=== PATIENT | female | born 1940 | race Two or more races ===

== ENCOUNTER 2020-02-12 18:14 | Emergency (ER) | payer MEDICARE ==
[~2020-02-12] VITALS: Ht 157.5 cm; Wt 40.0 kg
[~2020-02-12 18:14] MED LIST: NORepinephrine 1 mg/ml inj IV ONE; etomidate 2mg/ml inj. ONE; naloxone 2mg/2ml inj ONE; rocuronium 10mg/ml inj IV ONE; sod chloride 0.9% 10ml flush syringe IV ONE
[2020-02-12] MEDS ORDERED: naloxone 2mg/2ml inj IV ONE (18:25)
[2020-02-12] MEDS ORDERED: normal saline 1000ML IV soln IVB ONE (18:25)
--- NOTE | 2020-02-12 18:32 | NUR ---
pt regirested in the system late due to id issue. dr lange at bedside at 180 ready for the intubation .santiago iv meds push nurse at bedside. at 1809 pt was admin 0.8 mcg of narcan reflex moment noted pt bp 77/51,spo2 99% on i gel hr 108. repated the dose of narcan 0.8 mcg iv push at 1814 with +lower extremity and upper body reflex. AT 1817 md nazario cra for intubation medicated the pt with etom 15 mg.bp 95/69,118 hr,spo2 78. buster 35 mg at 1818 iv push admin. Pt intubated at 1819 with et tube 7,22 cm to gum.b/l lung sound noted .ac/vc tidal vol 350,rr 16,peep 5 ,fio2 100%. at 1820 pt norepi 0.2 mcg/kg/min started by the santiago rn. At 1824 bp 121/94,hr 104 . [address] taken to [address] scan by raad tucker primary nurse at 1825 .pt vitals at ct scan 1830-bp 117/86,15,111 hr,94%. pt back to room.
--- NOTE | 2020-02-12 18:40 | NUR ---
dr lange aware that patient was started on levophed drip via piv.
[2020-02-12 18:45] LABS: BASOPHILS # (AUTO) 0.1 X10'3 (0-0.2); BASOPHILS % (AUTO) 0.5 % (0-1); EOSINOPHILS % (AUTO) 0.2 % (0-6); HEMATOCRIT 38.5 % (35.0-45.0); HEMOGLOBIN 12.3 g/dl (12.0-16.0); LYMPHOCYTES # (AUTO) 1.9 X10'3 (1.1-4.8); LYMPHOCYTES % (AUTO) 8.9 % (21-51); MEAN CORPUSCULAR HEMOGLOBIN 29.5 PG (27.0-31.0); MEAN CORPUSCULAR VOLUME 92.4 FL (78-98); MEAN PLATELET VOLUME 8.1 FL (7.4-10.4); MONOCYTES # (AUTO) 1.3 X10'3 (0-0.9); MONOCYTES % (AUTO) 6.3 % (2-12); NEUTROPHILS # (AUTO) 17.8 X10'3 (1.8-7.7); NEUTROPHILS % (AUTO) 84.1 % (42-75); PLATELET COUNT 255 X10'3 (140-440); RED BLOOD COUNT 4.17 X10'6 (4.20-5.60); RED CELL DISTRIBUTION WIDTH 14.3 % (11.5-14.5); WHITE BLOOD COUNT 21.2 X10'3 (4.5-11.0)
[2020-02-12 18:58] LABS: ALANINE AMINOTRANSFERASE 57 U/L (12-78); ALBUMIN 2.9 G/DL (3.4-5.0); ALBUMIN/GLOBULIN RATIO 0.8 (1.1-1.5); ALKALINE PHOSPHATASE 102 IU/L (46-116); ANION GAP 11 (8-16); ASPARTATE AMINO TRANSFERASE 43 U/L (10-37); BILIRUBIN,TOTAL 0.2 MG/DL (0.1-1.0); BLOOD UREA NITROGEN 22 MG/DL (7-18); BUN/CREATININE RATIO 18.5 (6.6-38.0); CALCIUM 7.8 MG/DL (8.5-10.1); CHLORIDE 108 MMOL/L (99-107); CREATININE 1.19 MG/DL (0.40-0.90); GLUCOSE 180 MG/DL (70-104); SODIUM 143 MMOL/L (135-145); TOTAL CARBON DIOXIDE 24.1 MMOL/L (24-32); TOTAL PROTEIN 6.4 G/DL (6.4-8.2); eGFR 44 ML/MIN
[2020-02-12 19:02] LABS: TROPONIN I 0.05 NG/ML (0.0-0.05)
[2020-02-12 19:05] LABS: POTASSIUM 4.2 MMOL/L (3.5-5.1)
[2020-02-12] MEDS ORDERED: iohexol 350MG/ML 100ml bottle IV ONE (19:06)
[2020-02-12 19:07] LABS: ETHANOL < 0.010 GM/DL (0.0-0.010)
--- NOTE | 2020-02-12 19:25 | NUR ---
Spoke to pt's son Immanuel over the telephone and relayed pt's status. 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
[2020-02-12 19:30] LABS: CLARITY,URINE CLEAR (Clear); COLOR,URINE YELLOW (Yellow); GLUCOSE, URINE 100 mg/dl (Neg); KETONES,URINE NEGATIVE (Neg); LEUKOCYTE ESTERASE ,URINE TRACE (Neg); NITRITES, URINE NEGATIVE (Neg); OCCULT BLOOD,URINE SMALL (Neg); PROTEIN,URINE 100 mg/dl (Neg); UROBILINOGEN,URINE 0.2 E.U/dL (0.2-1.0)
[2020-02-12 19:36] LABS: UA COLLECTION TYPE FOLEY CATH
[2020-02-12 19:37] LABS: BACTERIA,URINE FEW /HPF (Neg); RBC,URINE 0-2 /HPF (0-2); SQUAMOUS EPITHELIAL CELL,UR FEW /LPF (FEW)
[2020-02-12 19:44] LABS: URINE AMPHETAMINE SCREEN NEGATIVE (Neg); URINE BARBITUATE SCREEN NEGATIVE (Neg); URINE BENZODIAZEPINES SCREEN NEGATIVE (Neg); URINE CANNABINOID SCREEN NEGATIVE (Neg); URINE COCAINE SCREEN NEGATIVE (Neg); URINE METHADONE SCREEN NEGATIVE (Neg); URINE OPIATE SCREEN NEGATIVE (Neg); URINE PHENCYCLIDINE SCREEN NEGATIVE (Neg)
[2020-02-12] MEDS ORDERED: MIDAZolam 5mg/ml 2ml vial IV ONE (20:00)
--- NOTE | 2020-02-12 20:05 | NUR ---
Jairon zamora in ED - 02/12/20 at 2020 by [email or web address] Norepinephrine increased from 0.25 mcg/kg/min to 0.50 mcg/kg/min per Dr Riggins's verbal order.
--- NOTE | 2020-02-12 20:08 | NUR ---
Notified MD Riggins of declining BP in SBP 70. Verbal order given to change levophed to 0.5mcg/kg/min and titrate down as necessary.
[2020-02-12] MEDS ORDERED: NORepinephrine 8mg/ 250ml NS 250 ML IV SCH (20:15)
[2020-02-12 20:16] LABS: ABG BASE EXCESS -9.8 mmol/L (-2.0-2.0); ABG HCO3 18.1 mmol/L (22.0-26.0); ABG OXYGEN SATURATION 75.5 % (94-97); ABG PCO2 (T) 43.9 mmHg (32.0-45.0); ABG PO2 (T) 39.9 mmHg (75.0-100.0); FCOHb 1.5 % (0.0-3.9); FO2Hb 74.4 % (94-97); PATIENT TEMPERATURE 35.2; PEEP 5 cm H2O; RESPIRATORY RATE 16 b/min; TIDAL VOLUME 350 mL; TOTAL HEMOGLOBIN 14.7 G/dl (12.0-16.0)
--- NOTE | 2020-02-12 20:16 | NUR ---
Dr Riggins aware of fidel blood when pt's ET tube is suctioned.
[2020-02-12] MEDS ORDERED: ampicill/sulbac 1.5gm/NS 100ml 100 ML IV SCH (20:20)
--- NOTE | 2020-02-12 20:35 | NUR ---
Norephinephrine increased to 0.55 mcg/kg/min
--- NOTE | 2020-02-12 20:45 | NUR ---
Gave report to [facility] ER charge nurse via telephone.
--- NOTE | 2020-02-12 20:52 | NUR ---
TRANSFERRED TO [facility]. HSRUTI BECKMAN WENT WITH EMS.
--- NOTE | 2020-02-12 21:00 | NUR ---
Spoke to pt's son Immanuel over the telephone and notified him of pt's transfer to [facility] for neurosurgery services.
[2020-02-12 21:31] LABS: PLATELET ESTIMATE NORMAL; TOTAL CELLS COUNTED 100
[2020-02-12 21:34] VITALS: BP 91/60
== END 2020-02-12 21:37 | disposition short-term general hospital (02) ==
LOC: ER 18:15
DX: J18.9 Pneumonia, unspecified organism (principal); G08 Intracranial and intraspinal phlebitis and thrombophlebitis; R41.82 Altered mental status, unspecified; Z88.0 Allergy status to penicillin
CPT/HCPCS: 36415; 36600; 70450; 70496; 70498; 71045; 80053; 80305; 80320; 81001; 82140; 82803; 84484; 85007; 85018; 85025; 87088; 93005; 96361; 96366; 96374; 99291; J2310; J7030; Q9967; 94002; 94760; 96365; 96375; 99285